=== PATIENT | female | born 1995 | race African-American/Black ===

== ENCOUNTER 2018-10-23 17:57 | Inpatient (IN) | payer BC, MEDICAID ==
[~2018-10-23] VITALS: Ht 167.6 cm; Wt 59.0 kg
[2018-10-23 18:00] VITALS: BP 135/87
--- NOTE | 2018-10-23 18:26 | NUR ---
Patient ambulated to bed 11. RN evaluating patient at bedside.
--- NOTE | 2018-10-23 18:29 | NUR ---
C/O BODYACHE 10/ X EARLIER THIS MORNING. DENIES N/V/D. TEMP 99.3. PMH: SICKLE CELL. CONNECTED TO MONITOR, MIKIE MARTIN MD FOR EVALUATION.
[2018-10-23] MEDS ORDERED: NACL 0.9% 1,000 ML IV ONE ×2 (19:15→19:20)
[2018-10-23] MEDS ORDERED: ONDANSETRON 4 MG/2 ML VIAL IVP ONE (19:20)
[2018-10-23] MEDS ORDERED: MORPHINE SULFATE 4 MG/ML SYR IVP ONE ×3 (19:20→21:35)
--- NOTE | 2018-10-23 19:20 | NUR ---
Pt report given to BALTA Jones. Transfer of care at this time.
--- NOTE | 2018-10-23 19:20 | NUR ---
ASSUMED CARE OF PT FROM BALTA NAVARRO
--- NOTE | 2018-10-23 20:04 | NUR ---
PATIENT RETURN FROM CT.
--- NOTE | 2018-10-23 20:15 | NUR ---
PT C/O PAIN. ER MD TRONCOSO AWARE.
[2018-10-23 20:31] LABS: APPEARANCE,URINE CLEAR (CLEAR); BILIRUBIN,URINE NEGATIVE (NEGATIVE); BLOOD, URINE 2+ (NEGATIVE); COLOR,URINE YELLOW (YELLOW); LEUKOCYTE ESTERASE ,URINE NEGATIVE (NEGATIVE); NITRITE, URINE NEGATIVE (NEGATIVE); UGLUCOSE NEGATIVE (NEGATIVE)
[2018-10-23 20:32] LABS: HEMATOCRIT 27.8 % (36-48); HEMOGLOBIN 9.5 g/dL (12.0-16.0); MEAN CORPUSCULAR HEMOGLOBIN 33 pg (27-31); MEAN CORPUSCULAR HGB CONC 34 g/dL (33-37); MEAN CORPUSCULAR VOLUME 95.1 fL (80-94); PLATELET COUNT (AUTO) 440 K/uL (140-450); RED BLOOD CELL COUNT(AUTO) 2.92 MIL/uL (4.20-5.40); RED CELL DISTRIBUTION WIDTH 17.6 % (11.6-13.7); WHITE BLOOD COUNT (AUTO) 20.6 K/uL (4.8-10.8)
[2018-10-23] MEDS ORDERED: IBUP-1842 PO (20:33)
[2018-10-23] MEDS ORDERED: VITD400 PO (20:33)
[2018-10-23] MEDS ORDERED: FOLI0.8T PO (20:33)
[2018-10-23] MEDS ORDERED: ACET-9529 PO (20:33)
[2018-10-23 20:40] LABS: WBC,URINE 0-5 /HPF (0-5)
[2018-10-23 20:45] LABS: ALBUMIN 4.3 g/dL (3.4-5.0); ANION GAP 13.1 (8-16); CARBON DIOXIDE 25.4 mmol/L (21-32); CREATININE 0.6 mg/dL (0.6-1.3); POTASSIUM 3.5 mmol/L (3.5-5.1)
[2018-10-23 20:51] LABS: CORRECTED WHITE BLOOD COUNT 19.3 K/uL (4.5-11.0)
[2018-10-23 20:52] LABS: LYMPHOCYTES % (MANUAL) 4 % (20-46); MONOCYTES % (MANUAL) 16 % (5-12)
[2018-10-23] MEDS ORDERED: KETOROLAC 30 MG/ML VIAL IVP ONE (21:35)
[2018-10-23] MEDS ORDERED: ZOLPIDEM 5 MG TAB PO PRN (21:50)
[2018-10-23] MEDS ORDERED: ONDANSETRON 4 MG/2 ML VIAL IVP PRN (21:50)
[2018-10-23] MEDS ORDERED: HYDROcodone/APAP 7.5/325 MG 1 TAB PO PRN (21:50)
[2018-10-23] MEDS ORDERED: ACETAMINOPHEN 325 MG TAB PO PRN (21:50)
[2018-10-23 22:29] LABS: PROTHROMBIN TIME 10.5 secs (10.8-13.4)
--- NOTE | 2018-10-23 22:30 | NUR ---
Patient will be admitted to care of DR CAIN. Admited to MED SURG. Will go to room 121-A. Belongings list completed. Report to BALTA GOLDBERG.
[2018-10-23 22:40] VITALS: BP 120/70
[2018-10-23] MEDS: NACL 0.9% 1,000 ML IV SCH (22:40)
--- NOTE | 2018-10-23 22:40 | NUR ---
RECEIVED BEDSIDE REPORT FROM STAIN MAKER WALLY, PATIENT AMBULATED TO BED FROM WHEELCHAIR, VITAL SIGNS ARE STABLE, PATIENT AWAKE AND ALERT, ASSISTED PATIENT TO BED, ORIENTED TO ROOM AND UNIT, BED LOW, CALL LIGHT IN REACH, FAMILY IS AT BEDSIDE. NO SIGNS OF DISTRESS ON RA, WILL CONTINUE TO MONITOR PATIENT.
[2018-10-23 22:44] LABS: FREE T4 (FREE THYROXINE) 0.95 ng/dL (0.76-1.46); MAGNESIUM 1.7 mg/dL (1.8-2.4); PHOSPHORUS 3.4 mg/dL (2.5-4.9); THYROID STIMULATING HORMONE 3.19 uIU/mL (0.34-3.74)
--- NOTE | 2018-10-23 23:03 | NUR ---
PATIENT HAS A MAGNESIUM OF 1.7, DR. ALBRECHT, RESIDENT AWARE. WILL PLACE ORDER FOR MAGNESIUM.
[2018-10-23] MEDS ORDERED: MAG SULF 2000 MG/WATER PREMIX 50 ML IV ONE (23:30)
[2018-10-24 00:04] LABS: BARBITURATE, URINE NEG. ng/ml (NEG <=200); BENZODIAZEPINE, URINE NEG. ng/mL (NEG <=200); CANNABINOID, URINE POS. ng/mL (NEG <=50); COCAINE, URINE NEG. ng/mL (NEG <=300); OPIATE, URINE POS. ng/mL (NEG <=2000); PHENCYCLIDINE SCREEN,URINE NEG. ng/mL (NEG <=25)
--- NOTE | 2018-10-24 01:15 | NUR ---
PATIENT SLEEPING COMFORTABLY IN BED, NO SIGNS OF DISTRESS ON RA, BED LOW, CALL LIGHT IN REACH, WILL CONTINUE TO MONITOR.
[2018-10-24] MEDS: MORPHINE SULFATE 2 MG/ML SYR IVP PRN ×6 (01:27→21:59)
--- NOTE | 2018-10-24 01:30 | NUR ---
PATIENT REPORTING PAIN OF 7/10, MEDICATED WITH PRN PAIN MEDICATION. WILL CONTINUE TO MONITOR
--- NOTE | 2018-10-24 02:27 | NUR ---
PATIENT STATES THAT PAIN IS REDUCED AND IS TOLERABLE, LYING IN BED WITH NO SIGNS OF DISTRESS ON RA. WILL CONTINUE TO MONITOR.
[2018-10-24] MEDS: NACL 0.9% 1,000 ML IV SCH ×3 (03:53→17:57)
--- NOTE | 2018-10-24 04:09 | NUR ---
CALLED DR. ALBRECHT, RESIDENT, AND MADE AWARE OF ELEVATED WBCS AND CT ABD RESULTS. NO NEW ORDERS AT THIS TIME.
[2018-10-24] MEDS ORDERED: FOLI0.8T PO (05:58)
--- NOTE | 2018-10-24 06:03 | NUR ---
PATIENT HAS PAIN 7/, ADMINISTERED PRN MEDICATION, PATIENT STATED THAT HEAT HELPS ALLEVIATE JOINT PAIN WELL AND REQUESTED A HEAT PACK. SPOKE TO DR. ALBRECHT AND HE WILL PLACE ORDER FOR HEATING PAD.
[2018-10-24] MEDS ORDERED: PIPERACILLIN/TAZOBACTAM 3.375 GM VIAL IV ONE (06:36)
[2018-10-24] MEDS: IBUPROFEN 400 MG TAB PO PRN ×2 (06:55→14:02)
[2018-10-24] MEDS ORDERED: PIPER/TAZO 3.375GM/D5W PREMIX 50 ML IV SCH (07:00)
[2018-10-24 07:05] LABS: BASOPHILS # (AUTO) 0.1 K/uL (0.00-0.22); BASOPHILS % (AUTO) 0.6 % (0.0-2.0); EOSINOPHILS # (AUTO) 0.1 K/uL (0-0.4); EOSINOPHILS % (AUTO) 0.7 % (0.0-4.0); HEMATOCRIT 25.3 % (36-48); HEMOGLOBIN 8.9 g/dL (12.0-16.0); LYMPHOCYTES # (AUTO) 1.8 K/uL (2.5-16.5); LYMPHOCYTES % (AUTO) 9.8 % (20.5-51.1); MEAN CORPUSCULAR HEMOGLOBIN 33 pg (27-31); MEAN CORPUSCULAR HGB CONC 35 g/dL (33-37); MONOCYTES # (AUTO) 3.3 K/uL (0.8-1.0); MONOCYTES % (AUTO) 18.5 % (1.7-9.3); NEUTROPHILS # (AUTO) 12.6 K/uL (1.8-7.7); NEUTROPHILS % (AUTO) 70.4 % (42.2-75.2); PLATELET COUNT (AUTO) 395 K/uL (140-450); RED BLOOD CELL COUNT(AUTO) 2.66 MIL/uL (4.20-5.40); RED CELL DISTRIBUTION WIDTH 16.5 % (11.6-13.7); WHITE BLOOD COUNT (AUTO) 17.9 K/uL (4.8-10.8)
[2018-10-24 07:16] LABS: ANION GAP 14.2 (8-16); CARBON DIOXIDE 23.7 mmol/L (21-32); CREATININE 0.6 mg/dL (0.6-1.3); POTASSIUM 3.9 mmol/L (3.5-5.1)
[2018-10-24 07:21] LABS: CHOL/HDL RATIO 2.1 (1-4.5); PHOSPHORUS 2.6 mg/dL (2.5-4.9)
--- NOTE | 2018-10-24 07:25 | NUR ---
RECEIVED PT REPORT FROM LEGAL RECORDS CLERK NURSE AT BEDSIDE. PT IS AWAKE IN BED WATCHING TV AND ON HER PHONE. PT IS ON ROOM AIR, SKIN INTACT. 24 G IV SITE NOTED ON THE R HAND, INFUSING NS 100 ML/HR. PT IS ON REGULAR DIET. CALL LIGHT IS WITHIN REACH. WILL CONTINUE TO MONITOR.
--- NOTE | 2018-10-24 07:28 | NUR ---
ENDORSED PT IN STABLE CONDITION TO AM NURSE.
[2018-10-24 08:00] VITALS: BP 109/61
[2018-10-24] MEDS: VITAMIN D 400 IU TAB PO SCH (08:39)
[2018-10-24] MEDS: DOCUSATE SODIUM 100 MG GELCAP PO SCH ×2 (08:39→19:55)
[2018-10-24] MEDS: FOLIC ACID 1 MG TAB PO SCH (08:39)
--- NOTE | 2018-10-24 08:39 | NUR ---
PATIENT HAS BEEN SCREENED AND CATEGORIZED MODERATE NUTRITION RISK. PATIENT WILL BE SEEN WITHIN 3-5 DAYS OF ADMISSION. 10/26/18[address]
[2018-10-24] MEDS ORDERED: FOLIC ACID 1 MG TAB PO SCH (09:00)
--- NOTE | 2018-10-24 09:00 | NUR ---
AM MEDS ADMINISTERED, PT TOLERATED WELL. PT C/O 01/18 GENERALIZED PAIN R/T SICKLE CELL CRISIS, PRN IV MORPHINE ADMINISTERED. WILL REASSESS PAIN IN AN HOUR.
[2018-10-24] MEDS: PIPER/TAZO 3.375GM/D5W PREMIX 50 ML IV SCH ×2 (12:25→19:55)
--- NOTE | 2018-10-24 12:30 | NUR ---
IV ZOSYN INFUSING AT THIS TIME. IV IS PATENT AND INTACT.
--- NOTE | 2018-10-24 12:49 | NUR ---
PT DID NOT EAT LUNCH TRAY, INSTEAD ASKED FOR A HAM SANDWICH.
--- NOTE | 2018-10-24 13:00 | NUR ---
PT PLACED BY RT ON 7 L O2 OXYMIZER.
--- NOTE | 2018-10-24 15:22 | NUR ---
PT'S RELATIVE VISITING AT BEDSIDE AT THIS TIME.
[2018-10-24 16:00] VITALS: BP 121/62
--- NOTE | 2018-10-24 17:00 | NUR ---
ASSUMED CARE FROM JENNIFER. PT AAOX4, NO SOB NOTED. NO COMPLAINTS MADE. TALKING TO FAMILY AT THE BEDSIDE.
--- NOTE | 2018-10-24 17:00 | NUR ---
PT CARE ENDORSED TO BALTA STEWART
--- NOTE | 2018-10-24 18:10 | NUR ---
PT EATING DINNER. NO SOB NOTED. NO C/O PAIN AT THIS TIME.
--- NOTE | 2018-10-24 19:17 | NUR ---
PT AWAKE, ON THE PHONE. NO SOB NOTED. NO C/O PAIN AT THIS TIME. ENDORSED TO NEXT SHIFT NURSE FOR CONTINUITY OF CARE.
--- NOTE | 2018-10-24 19:18 | NUR ---
RECEIVED REPORT FROM DAY SHIFT NURSE PAT-RN AT BEDSIDE. PT RESTING IN BED WITH FAMILY AT BEDSIDE. AOX4, ON ROOM AIR WITH RIGHT HAND #24 RUNNING NS @100ML/HR. DISCUSSED PLAN OF CARE AND PT VERBALIZED UNDERSTANDING. NO S/S OF RESPIRATORY DISTRESS OR DISCOMFORT NOTED AT THIS TIME. BED IN LOWEST POSITION, BED BREAKS ON, BOTH SIDE RAILS UP. BEDSIDE TABLE AND CALL LIGHT ARE WITHIN REACH. WILL CONTINUE TO MONITOR.
[2018-10-24 20:00] VITALS: BP 128/82
--- NOTE | 2018-10-24 20:00 | NUR ---
VITAL SIGNS TAKEN AND TOLERATED WELL. PT C/O PAIN 12/19 AND MEDICATED WITH NORCO. PT TOLERATED WELL. NO S/S OF RESPIRATORY DISTRESS OR DISCOMFORT NOTED AT THIS TIME. WILL CONTINUE TO MONITOR.
--- NOTE | 2018-10-24 20:00 | NUR ---
SCHEDULED MEDICATION GIVEN AND TOLERATED WELL. NO S/S OF RESPIRATORY DISTRESS OR DISCOMFORT NOTED AT THIS TIME. WILL CONTINUE TO MONITOR.
--- NOTE | 2018-10-24 21:59 | NUR ---
PT C/O PAIN 7-02/18. MEDICATED WITH MORPHINE AND TOLERATED WELL. NO S/S OF RESPIRATORY DISTRESS OR DISCOMFORT NOTED AT THIS TIME. WILL CONTINUE TO MONITOR.
--- NOTE | 2018-10-24 22:50 | NUR ---
PT CONTINUES TO C/O PAIN STATING "THE MORPHINE DIDN'T DO ANYTHING FOR MY PAIN." CALLED DR. CH AND AWAITING ORDERS.
--- NOTE | 2018-10-24 22:55 | NUR ---
PT REFUSED TROPONIN BLOOD DRAW. DR. SHIRA CH IS AWARE. NO NEW ORDERS AT THIS TIME. WILL CONTINUE TO MONITOR.
--- NOTE | 2018-10-24 23:17 | NUR ---
DR. CH IN TO SEE PT REGARDING PAIN. AFTER ASSESSMENT WILL ORDER ANOTHER DOSE OF MORPHINE. PT AGREES. NO S/S OF RESPIRATORY DISTRESS OR DISCOMFORT NOTED AT THIS TIME. WILL CONTINUE TO MONITOR.
--- NOTE | 2018-10-24 23:27 | NUR ---
VITAL SIGNS TAKEN AND MORPHINE GIVEN AND TOLERATED WELL. NO S/S OF RESPIRATORY DISTRESS OR DISCOMFORT NOTED AT THIS TIME. WILL CONTINUE TO MONITOR.
[2018-10-24] MEDS ORDERED: MORPHINE SULFATE 2 MG/ML SYR IVP SCH (23:30)
[2018-10-25] VITALS: BP 147/80
[2018-10-25] MEDS: NACL 0.9% 1,000 ML IV SCH ×2 (01:04→11:04)
--- NOTE | 2018-10-25 02:00 | NUR ---
PT SLEEPING IN BED. NO S/S OF RESPIRATORY DISTRESS OR DISCOMFORT NOTED AT THIS TIME. WILL CONTINUE TO MONITOR.
[2018-10-25] MEDS: MORPHINE SULFATE 2 MG/ML SYR IVP PRN ×2 (02:58→05:44)
--- NOTE | 2018-10-25 02:58 | NUR ---
PT C/O PAIN 02/18 AND MEDICATED WITH MORPHINE. PT TOLERATED WELL. NO S/S OF RESPIRATORY DISTRESS OR DISCOMFORT NOTED AT THIS TIME. WILL CONTINUE TO MONITOR.
[2018-10-25] MEDS: PIPER/TAZO 3.375GM/D5W PREMIX 50 ML IV SCH ×2 (05:14→13:57)
--- NOTE | 2018-10-25 05:14 | NUR ---
SCHEDULED MEDICATION ZOSYN GIVEN AND TOLERATED WELL. NO S/S OF RESPIRATORY DISTRESS OR DISCOMFORT NOTED AT THIS TIME. WILL CONTINUE TO MONITOR.
--- NOTE | 2018-10-25 05:44 | NUR ---
PT C/O PAIN 02/18 AND TOLERATED WELL. NO S/S OF RESPIRATORY DISTRESS OR DISCOMFORT NOTED AT THIS TIME. WILL CONTINUE TO MONITOR.
--- NOTE | 2018-10-25 06:49 | NUR ---
PT C/O THAT PAIN ISN'T BEING MANAGED. SPOKE WITH DR. TIDWELL AND WILL BE PLACING NEW ORDERS.
--- NOTE | 2018-10-25 07:06 | NUR ---
DILAUDID GIVEN FOR PAIN- NEW ORDER. PT TOLERATED WELL. NO S/S OF RESPIRATORY DISTRESS OR DISCOMFORT NOTED AT THIS TIME. WILL CONTINUE TO MONITOR.
--- NOTE | 2018-10-25 07:24 | NUR ---
ENDORSED PT CARE TO DAY SHIFT NURSE KELLI-RN FOR CONTINUITY OF CARE.
--- NOTE | 2018-10-25 07:25 | NUR ---
RECEIVED BEDSIDE REPORT FROM CANDY ROLLING MACHINE OPERATOR NURSE. PATIENT IS AWAKE, ALERT AND ORIENTEDX4. NO SIGNS OF DISTRESS ON 6L OXYMIZER. PATIENT IS AMBULATORY. GAIT IS STEADY. SKIN IS INTACT. IV ON R HAND 24G INFUSING NS AT 100. CLEAN, DRY AND INTACT. PATIENT ABLE TO MAKE NEEDS KNOWN. CONTINENT. BED IN LOW POSITION. CALL LIGHT WITHIN REACH. WILL CONTINUE TO MONITOR THE PATIENT
--- NOTE | 2018-10-25 07:25 | NUR ---
RECEIVED BEDSIDE REPORT FROM LUNCHROOM MOTHER NURSE. PATIENT IS AWAKE, ALERT AND ORIENTEDX4. NO SIGNS OF DISTRESS ON RA. SKIN IS INTACT. TELE MONITOR IN PLACE. IV ON R FA 20G INFUSING NS AT 50. CLEAN, DRY AND INTACT. PATIENT IS AMBULATORY, GAIT IS STEADY. PATIENT IS CONTINENT. BED IN LOW POSITION. CALL LIGHT WITHIN REACH. WILL CONTINUE TO MONITOR THE PATIENT Addendum: 10/25/18 at 1343 by Mara Grajeda RN WRONG PATIENT
[2018-10-25 07:41] LABS: ANION GAP 13.6 (8-16); CARBON DIOXIDE 24.5 mmol/L (21-32); CREATININE 0.6 mg/dL (0.6-1.3); POTASSIUM 4.1 mmol/L (3.5-5.1)
[2018-10-25] MEDS ORDERED: HYDROmorphone 1 MG/ML AMP IVP PRN (07:50)
[2018-10-25 08:00] VITALS: BP 108/58
[2018-10-25 08:41] LABS: BASOPHILS # (AUTO) 0.2 K/uL (0.00-0.22); EOSINOPHILS # (AUTO) 0.6 K/uL (0-0.4); EOSINOPHILS % (AUTO) 3.7 % (0.0-4.0); HEMATOCRIT 26.4 % (36-48); HEMOGLOBIN 9.1 g/dL (12.0-16.0); LYMPHOCYTES # (AUTO) 2.8 K/uL (2.5-16.5); LYMPHOCYTES % (AUTO) 17.1 % (20.5-51.1); MEAN CORPUSCULAR HEMOGLOBIN 33 pg (27-31); MEAN CORPUSCULAR HGB CONC 34 g/dL (33-37); MEAN CORPUSCULAR VOLUME 95.6 fL (80-94); MONOCYTES # (AUTO) 2.5 K/uL (0.8-1.0); MONOCYTES % (AUTO) 15.4 % (1.7-9.3); NEUTROPHILS # (AUTO) 10.3 K/uL (1.8-7.7); NEUTROPHILS % (AUTO) 62.8 % (42.2-75.2); PLATELET COUNT (AUTO) 384 K/uL (140-450); RED BLOOD CELL COUNT(AUTO) 2.77 MIL/uL (4.20-5.40); RED CELL DISTRIBUTION WIDTH 15.8 % (11.6-13.7); WHITE BLOOD COUNT (AUTO) 16.3 K/uL (4.8-10.8)
--- NOTE | 2018-10-25 09:00 | NUR ---
PATIENT IS IN BED. NO SIGNS OF DISTRESS ON RA. WILL CONTINUE TO MONITOR THE PATIENT Addendum: 10/25/18 at 1343 by Mara Grajeda RN WRONG PATIENT
--- NOTE | 2018-10-25 09:00 | NUR ---
PATIENT SITTING IN BED. NO SIGNS OF DISTRESS ON 6L OXYMIZER. BED IN LOW POSITION. CALL LIGHT WITHIN REACH
[2018-10-25] MEDS ORDERED: BISACODYL 10 MG SUPP RC SCH (09:24)
[2018-10-25] MEDS: FOLIC ACID 1 MG TAB PO SCH (10:15)
[2018-10-25] MEDS: DOCUSATE SODIUM 100 MG GELCAP PO SCH (10:16)
[2018-10-25] MEDS: VITAMIN D 400 IU TAB PO SCH (10:21)
--- NOTE | 2018-10-25 10:27 | NUR ---
ADMINISTERED MEDS. PATIENT TOLERATED WELL. PATIENT EDUCATED ON SIDE EFFECTS. NO COMPLAINTS AT THIS TIME. BED IN LOWEST POSITION. CALL LIGHT WITHIN REACH.
[2018-10-25] MEDS ORDERED: MORPHINE SULFATE 4 MG/ML SYR IVP PRN (11:00)
[2018-10-25] MEDS ORDERED: AMOX500C25 PO (11:25)
[2018-10-25] MEDS ORDERED: LACT10CA1 PO (11:26)
--- NOTE | 2018-10-25 12:00 | NUR ---
PATIENT LAYING IN BED. NO SIGNS OF DISTRESS. WILL CONTINUE TO MONITOR
[2018-10-25] MEDS ORDERED: MICO1KIT VG (12:42)
--- NOTE | 2018-10-25 13:58 | NUR ---
ADMINISTERED PRN PAIN MED. PATIENT TOLERATED WELL. EDUCATED ON SIDE EFFECTS. NO SIGNS OF DISTRESS. WILL CONTINUE TO MONITOR.
--- NOTE | 2018-10-25 16:02 | NUR ---
PATIENT IS SLEEPING. NO SIGNS OF DISTRESS. WILL CONTINUE TO MONITOR
--- NOTE | 2018-10-25 17:26 | NUR ---
EDUCATED ON DISEASE PROCESS, ABN S/SX, WHEN TO GO TO THE ER, EDUCATED ON F/U W PCP. EDUCATED ON MEDS AND GAVE PRESCRIPTION. EDUCATED ON REFUSAL ON FLU VACCINE, PNA NOT A CANDIDATE. IV REMOVED, TIP INTACT. ID BANDS REMOVED. PATIENTS SISTER IS ALMOST HERE TO PICK HER UP
--- NOTE | 2018-10-25 18:25 | NUR ---
PATIENT LEFT IN STABLE CONDITION.
== END 2018-10-25 18:25 | disposition home or self-care (01) | DRG 662 ==
LOC: MED 17:57 → MTU 22:03
PROVIDERS: ADMIT General Practice; ATTEND General Practice
DX: D57.00 Hb-SS disease with crisis, unspecified (principal); R65.10 Systemic inflammatory response syndrome (SIRS) of non-infectious origin without acute organ dysfunction; I89.8 Other specified noninfective disorders of lymphatic vessels and lymph nodes; E83.42 Hypomagnesemia; D72.829 Elevated white blood cell count, unspecified; B37.3 Candidiasis of vulva and vagina; R91.1 Solitary pulmonary nodule; M43.17 Spondylolisthesis, lumbosacral region; E80.6 Other disorders of bilirubin metabolism; D63.8 Anemia in other chronic diseases classified elsewhere; Z88.2 Allergy status to sulfonamides; Z79.899 Other long term (current) drug therapy; Z90.49 Acquired absence of other specified parts of digestive tract; Z90.81 Acquired absence of spleen; Z83.2 Family history of diseases of the blood and blood-forming organs and certain disorders involving the immune mechanism; Z80.9 Family history of malignant neoplasm, unspecified; Z82.49 Family history of ischemic heart disease and other diseases of the circulatory system
CPT/HCPCS: 36415; 71045; 80048; 80053; 80305; 81001; 82150; 82247; 83036; 83605; 83690; 83735; 83880; 84100; 84439; 84443; 84484; 85025; 85045; 85610; 85730; 86886; 86900; 86901; 87040; 87081; 87804; 96361; 96374; 96375; 96376; 99285; J1170; J1644; J1885; J2270; J2405; J2543; J3475; J7030; J7060; Q0092

== ENCOUNTER 2019-04-05 07:34 | Inpatient (IN) | payer MEDICAID, BC ==
[~2019-04-05] VITALS: Ht 167.6 cm; Wt 60.3 kg
[~2019-04-05 07:34] MED LIST: ACET-9529 PO; AMOX500C25 PO; FOLI0.8T PO; IBUP-1842 PO; LACT10CA1 PO; MICO1KIT VG; VITD400 PO
[2019-04-05 07:39] VITALS: BP 128/79
[2019-04-05] MEDS ORDERED: KETOROLAC 30 MG/ML VIAL IVP ONE (07:55)
[2019-04-05] MEDS ORDERED: NACL 0.9% 1,000 ML IV ONE (07:55)
[2019-04-05 08:45] LABS: APPEARANCE,URINE CLEAR (CLEAR); BILIRUBIN,URINE NEGATIVE (NEGATIVE); BLOOD, URINE NEGATIVE (NEGATIVE); COLOR,URINE YELLOW (YELLOW); LEUKOCYTE ESTERASE ,URINE NEGATIVE (NEGATIVE); NITRITE, URINE NEGATIVE (NEGATIVE); UGLUCOSE NEGATIVE (NEGATIVE)
[2019-04-05 08:49] LABS: HEMATOCRIT 27.6 % (36-48); HEMOGLOBIN 9.7 g/dL (12.0-16.0); MEAN CORPUSCULAR HEMOGLOBIN 33 pg (27-31); MEAN CORPUSCULAR HGB CONC 35 g/dL (33-37); MEAN CORPUSCULAR VOLUME 94.4 fL (80-94); PLATELET COUNT (AUTO) 409 K/uL (140-450); RED BLOOD CELL COUNT(AUTO) 2.92 MIL/uL (4.20-5.40); RED CELL DISTRIBUTION WIDTH 16.6 % (11.6-13.7); WHITE BLOOD COUNT (AUTO) 13.3 K/uL (4.8-10.8)
[2019-04-05 08:53] LABS: ANION GAP 14.4 (8-16); CARBON DIOXIDE 24.5 mmol/L (21-32); CREATININE 0.6 mg/dL (0.6-1.3); POTASSIUM 3.9 mmol/L (3.5-5.1)
[2019-04-05 08:58] LABS: ALBUMIN 4.1 g/dL (3.4-5.0); TOTAL BILIRUBIN 3.1 mg/dL (0.0-1.0)
[2019-04-05] MEDS ORDERED: MORPHINE SULFATE 10 MG/ML VIAL IVP ONE ×2 (09:20→10:50)
[2019-04-05 09:29] LABS: EOSINOPHILS % (MANUAL) 9 % (0-4); LYMPHOCYTES % (MANUAL) 24 % (20-46); MONOCYTES % (MANUAL) 17 % (5-12)
[2019-04-05] MEDS ORDERED: LORazepam 2 MG/ML VIAL IM/IVP PRN (11:35)
[2019-04-05] MEDS ORDERED: DOCUSATE SODIUM 100 MG GELCAP PO PRN (11:35)
[2019-04-05] MEDS ORDERED: ONDANSETRON 4 MG/2 ML VIAL IM/IVP PRN (11:35)
[2019-04-05] MEDS ORDERED: HYDROcodone/APAP 5/325 MG 1 TAB TAB PO PRN (11:35)
[2019-04-05] MEDS ORDERED: ACETAMINOPHEN 325 MG TAB PO PRN (11:35)
[2019-04-05] MEDS ORDERED: ZOLPIDEM 5 MG TAB PO PRN (11:35)
[2019-04-05 12:00] LABS: BARBITURATE, URINE NEG. ng/ml (NEG <=200); BENZODIAZEPINE, URINE NEG. ng/mL (NEG <=200); CANNABINOID, URINE POS. ng/mL (NEG <=50); COCAINE, URINE NEG. ng/mL (NEG <=300); OPIATE, URINE POS. ng/mL (NEG <=2000); PHENCYCLIDINE SCREEN,URINE NEG. ng/mL (NEG <=25)
[2019-04-05 12:16] LABS: CHOL/HDL RATIO 3.2 (1-4.5); FREE T4 (FREE THYROXINE) 0.84 ng/dL (0.76-1.46); MAGNESIUM 1.8 mg/dL (1.8-2.4); PHOSPHORUS 4.8 mg/dL (2.5-4.9); THYROID STIMULATING HORMONE 3.58 uIU/mL (0.34-3.74)
[2019-04-05 12:33] LABS: PROTHROMBIN TIME 10.7 secs (10.8-13.4)
[2019-04-05 13:30] VITALS: BP 102/54
[2019-04-05] MEDS: NACL 0.9% 1,000 ML IV SCH ×2 (14:01→21:32)
[2019-04-05] MEDS: oxyCODONE/APAP 5/325 MG 1 TAB TAB PO PRN (17:42)
[2019-04-05] MEDS: MORPHINE SULFATE 2 MG/ML SYR IVP PRN (21:06)
[2019-04-06] VITALS: BP 97/56
[2019-04-06] MEDS: NACL 0.9% 1,000 ML IV SCH ×2 (03:07→12:50)
[2019-04-06] MEDS: MORPHINE SULFATE 2 MG/ML SYR IVP PRN ×3 (06:05→21:42)
[2019-04-06 07:39] LABS: BASOPHILS # (AUTO) 0.2 K/uL (0.00-0.22); BASOPHILS % (AUTO) 1.3 % (0.0-2.0); EOSINOPHILS % (AUTO) 6.9 % (0.0-4.0); HEMATOCRIT 27.2 % (36-48); HEMOGLOBIN 9.4 g/dL (12.0-16.0); LYMPHOCYTES # (AUTO) 2.5 K/uL (2.5-16.5); LYMPHOCYTES % (AUTO) 17.9 % (20.5-51.1); MEAN CORPUSCULAR HEMOGLOBIN 33 pg (27-31); MEAN CORPUSCULAR HGB CONC 35 g/dL (33-37); MONOCYTES # (AUTO) 2.7 K/uL (0.8-1.0); MONOCYTES % (AUTO) 19.3 % (1.7-9.3); NEUTROPHILS # (AUTO) 7.6 K/uL (1.8-7.7); NEUTROPHILS % (AUTO) 54.6 % (42.2-75.2); PLATELET COUNT (AUTO) 403 K/uL (140-450); RED BLOOD CELL COUNT(AUTO) 2.86 MIL/uL (4.20-5.40); RED CELL DISTRIBUTION WIDTH 15.9 % (11.6-13.7)
[2019-04-06 07:44] LABS: MAGNESIUM 1.8 mg/dL (1.8-2.4)
[2019-04-06 07:59] LABS: ANION GAP 13.9 (8-16); CARBON DIOXIDE 24.2 mmol/L (21-32); CREATININE 0.5 mg/dL (0.6-1.3); POTASSIUM 4.1 mmol/L (3.5-5.1)
[2019-04-06 08:00] VITALS: BP 94/54
[2019-04-06] MEDS: oxyCODONE/APAP 5/325 MG 1 TAB TAB PO PRN (15:13)
[2019-04-06 16:00] VITALS: BP 93/51
[2019-04-06 20:00] VITALS: BP 100/56
[2019-04-07] MEDS: NACL 0.9% 1,000 ML IV SCH (00:48)
[2019-04-07 04:00] VITALS: BP 105/58
[2019-04-07 08:05] LABS: BASOPHILS # (AUTO) 0.1 K/uL (0.00-0.22); BASOPHILS % (AUTO) 0.9 % (0.0-2.0); EOSINOPHILS # (AUTO) 0.8 K/uL (0-0.4); EOSINOPHILS % (AUTO) 8.5 % (0.0-4.0); HEMATOCRIT 27.5 % (36-48); HEMOGLOBIN 9.5 g/dL (12.0-16.0); LYMPHOCYTES % (AUTO) 30.8 % (20.5-51.1); MEAN CORPUSCULAR HEMOGLOBIN 33 pg (27-31); MEAN CORPUSCULAR HGB CONC 35 g/dL (33-37); MEAN CORPUSCULAR VOLUME 95.6 fL (80-94); MONOCYTES # (AUTO) 1.5 K/uL (0.8-1.0); NEUTROPHILS # (AUTO) 4.2 K/uL (1.8-7.7); NEUTROPHILS % (AUTO) 43.8 % (42.2-75.2); PLATELET COUNT (AUTO) 375 K/uL (140-450); RED BLOOD CELL COUNT(AUTO) 2.87 MIL/uL (4.20-5.40); RED CELL DISTRIBUTION WIDTH 15.8 % (11.6-13.7); WHITE BLOOD COUNT (AUTO) 9.7 K/uL (4.8-10.8)
[2019-04-07 10:12] LABS: CREATININE 0.5 mg/dL (0.6-1.3); POTASSIUM 4.5 mmol/L (3.5-5.1)
[2019-04-07 10:26] LABS: ANION GAP 15.5 (8-16)
[2019-04-07 11:06] LABS: MAGNESIUM 1.7 mg/dL (1.8-2.4); PHOSPHORUS 4.4 mg/dL (2.5-4.9)
== END 2019-04-07 11:45 | disposition home or self-care (01) | DRG 812 ==
LOC: MED 07:34 → MMU 11:36
PROVIDERS: ADMIT General Practice; ATTEND General Practice
DX: D57.00 Hb-SS disease with crisis, unspecified (principal); R65.10 Systemic inflammatory response syndrome (SIRS) of non-infectious origin without acute organ dysfunction; Z88.2 Allergy status to sulfonamides; Z79.899 Other long term (current) drug therapy; Z90.49 Acquired absence of other specified parts of digestive tract
CPT/HCPCS: 36415; 71045; 76705; 80048; 80053; 80305; 81003; 82150; 83036; 83690; 83735; 83880; 84100; 84439; 84443; 84484; 84703; 85025; 85045; 85610; 85730; 87081; 96361; 96374; 96375; 96376; 99285; J1885; J2270; J7030; Q0092

== ENCOUNTER 2019-04-13 09:02 | Emergency (ER) | payer MEDICAID, BC ==
[~2019-04-13] VITALS: Ht 167.6 cm; Wt 59.4 kg
[~2019-04-13 09:02] MED LIST changes: -AMOX500C25 PO; -MICO1KIT VG
[2019-04-13 09:16] VITALS: BP 101/79
--- NOTE | 2019-04-13 09:21 | NUR ---
PATIENT WAS HOSPITALIZED HERE ON 04/05/19 FOR SICKLE CELL CRISIS. WAS TOLD TO F/U WITH PCP BUT PT DOES NOT HAVE PCP SO DECIDED TO F/U HERE TODAY. DENIES ANY PROBLEMS SINCE DISCHARGE ON LAST ADMISSION. HX- SICKLE CELL DISEASE RX- FOLIC ACID, VIT D, NORCO 7.5
--- NOTE | 2019-04-13 09:22 | NUR ---
DR. GUILLERMO EVALUATING PATIENT AT BEDSIDE.
--- NOTE | 2019-04-13 09:52 | NUR ---
Patient discharged with v/s stable. Written and verbal after care instructions given and explained. Patient alert, oriented and verbalized understanding of instructions. Ambulatory with steady gait. All questions addressed prior to discharge. ID band removed. Patient advised to follow up with PMD. Rx of [place]flower, Vitamin D3 given. Patient educated on indication of medication including possible reaction and side effects. Opportunity to ask questions provided and answered.
[2019-04-13 09:53] VITALS: BP 101/79
== END 2019-04-13 09:52 | disposition home or self-care (01) ==
LOC: MED 09:02
DX: D57.1 Sickle-cell disease without crisis (principal); F12.90 Cannabis use, unspecified, uncomplicated; Z76.0 Encounter for issue of repeat prescription; Z88.2 Allergy status to sulfonamides; Z79.899 Other long term (current) drug therapy
CPT/HCPCS: 81025; 99283

== ENCOUNTER 2019-07-19 20:07 | Emergency (ER) | payer OTHER, MEDICAID ==
[~2019-07-19] VITALS: Ht 167.6 cm; Wt 57.2 kg
[2019-07-19 20:27] VITALS: BP 117/69
--- NOTE | 2019-07-19 20:35 | NUR ---
PT AMBULATED TO LOBBY WITH VSS.
--- NOTE | 2019-07-19 20:49 | NUR ---
AMBULATED TO ER BED 9
--- NOTE | 2019-07-19 21:00 | NUR ---
24 Y/O FEMALE C/O LOWER BACK AND COCCYX REGION AND LEFT SIDEX YESTERADY PT STATES SHE HAS HX OF SICKLE CELL. ABD IS SOFT, ROUND, NONTENDER, ACTIVE BS. VSS. NO DISTRESS NOTED. DENIES BURNING SENSATION WHEN PEEING OR BLOOD IN THE URINE. RATES PAIN 10/10 AND IS CONSTANT. A & O X4. STEADY GAIT. ALLERGIES: SULFA PMH: SICKLE CELL, MARI DN GALLBLADDER REMOVAL.
[2019-07-19 21:18] LABS: APPEARANCE,URINE CLEAR (CLEAR); BILIRUBIN,URINE NEGATIVE (NEGATIVE); BLOOD, URINE NEGATIVE (NEGATIVE); COLOR,URINE YELLOW (YELLOW); LEUKOCYTE ESTERASE ,URINE NEGATIVE (NEGATIVE); NITRITE, URINE NEGATIVE (NEGATIVE); UGLUCOSE NEGATIVE (NEGATIVE)
[2019-07-19] MEDS: MORPHINE SULFATE 4 MG/ML SYR IVP ONE (21:46)
[2019-07-19] MEDS: ONDANSETRON 4 MG/2 ML VIAL IVP ONE (21:47)
[2019-07-19 21:54] LABS: HEMATOCRIT 27.7 % (36-48); HEMOGLOBIN 9.6 g/dL (12.0-16.0); MEAN CORPUSCULAR HEMOGLOBIN 33 pg (27-31); MEAN CORPUSCULAR HGB CONC 35 g/dL (33-37); MEAN CORPUSCULAR VOLUME 95.2 fL (80-94); PLATELET COUNT (AUTO) 420 K/uL (140-450); RED BLOOD CELL COUNT(AUTO) 2.91 MIL/uL (4.20-5.40); RED CELL DISTRIBUTION WIDTH 15.8 % (11.6-13.7); WHITE BLOOD COUNT (AUTO) 11.8 K/uL (4.8-10.8)
[2019-07-19 22:14] LABS: ALBUMIN 4.7 g/dL (3.4-5.0); ANION GAP 12.6 (8-16); CARBON DIOXIDE 26.5 mmol/L (21-32); CREATININE 0.6 mg/dL (0.6-1.3); POTASSIUM 4.1 mmol/L (3.5-5.1); TOTAL BILIRUBIN 3.6 mg/dL (0.0-1.0)
[2019-07-19 22:32] LABS: EOSINOPHILS % (MANUAL) 3 % (0-4); LYMPHOCYTES % (MANUAL) 38 % (20-46); METAMYELOCYTES % 1 % (0-0); MONOCYTES % (MANUAL) 11 % (5-12)
[2019-07-19] MEDS: NACL 0.9% 1,000 ML IV ONE (23:15)
[2019-07-19] MEDS: fentaNYL 0.05 MG/ML VIAL IVP ONE (23:17)
--- NOTE | 2019-07-20 00:54 | NUR ---
Patient discharged with v/s stable. Written and verbal after care instructions given and explained. Patient verbalized understanding. Ambulatory with steady gait. All questions addressed prior to discharge. Advised to follow up with PMD.
[2019-07-20 00:55] VITALS: BP 108/74
--- NOTE | 2019-07-20 08:51 | NUR ---
Late entry. Confirmed with RN that 0.9 NS IV completed at 1689
== END 2019-07-20 00:54 | disposition home or self-care (01) ==
LOC: MED 20:07
DX: D57.1 Sickle-cell disease without crisis (principal); M54.5 Low back pain; Z79.899 Other long term (current) drug therapy; Z88.2 Allergy status to sulfonamides
CPT/HCPCS: 36415; 80053; 81003; 81025; 85025; 85045; 96374; 96375; 99283; J2270; J2405; J3010; J7030

== ENCOUNTER 2020-03-01 11:39 | Emergency (ER) | payer MEDICAID, OTHER ==
[~2020-03-01] VITALS: Ht 167.6 cm; Wt 61.2 kg
[2020-03-01 11:42] VITALS: BP 120/70
--- NOTE | 2020-03-01 11:53 | NUR ---
25 Y/O FEMALE PRESENTS TO ER WITH C/O HEADACHE X 4 DAYS. 8/10 PAIN. DENIES VISION CHANGES,SENSITIVITY TO LIGHT, SOUND, OR SMELL, TASTE, NAUSEA, VOMITING, DIARRHEA, SOB, COUGH, FEVER, CHILLS, TRAUMA, LOC. VSS, R/R EQUAL, AND UNLABORED. DENIES TAKING ANY MEDS PRIOR TO ARRIVAL TO ER. SIDE RAIL X 1, BED IN LOW POSITION, WILL CONTINUE TO MONITOR. ALLERGY: SULFA PMH: SICKLE CELL ANEMIA
--- NOTE | 2020-03-01 11:57 | NUR ---
Dr. Watts is evaluating the patient at bedside.
[2020-03-01] MEDS ORDERED: METOCLOPRAMIDE 10 MG/2 ML INJ VIAL IVP ONE (12:05)
[2020-03-01] MEDS ORDERED: NACL 0.9% 1,000 ML IV ONE ×2 (12:05→13:35)
[2020-03-01] MEDS ORDERED: diphenhydrAMINE 50 MG/ML VIAL IVP ONE (12:05)
--- NOTE | 2020-03-01 14:04 | NUR ---
PT RESTING QUIETLY IN BED, PLAYING WITH PHONE. "I FEEL SO MUCH BETTER." ANOTHER 1L BOLUS STARTED. VSS, R/R EQUAL, AND UNLABORED, SIDE RAIL X1, BED IN LOW POSITION, WILL CONTINUE TO MONITOR.
[2020-03-01 14:56] VITALS: BP 120/70
--- NOTE | 2020-03-01 14:57 | NUR ---
Patient discharged with v/s stable. Written and verbal after care instructions given and explained. Patient alert, oriented and verbalized understanding of instructions. Ambulatory with steady gait. All questions addressed prior to discharge. ID band removed. Patient advised to follow up with PMD. Rx of FLORICET given. Patient educated on indication of medication including possible reaction and side effects. Opportunity to ask questions provided and answered.
== END 2020-03-01 14:57 | disposition home or self-care (01) ==
LOC: MED 11:39
DX: R51 Headache (principal); D57.80 Other sickle-cell disorders without crisis; Z88.2 Allergy status to sulfonamides; Z79.899 Other long term (current) drug therapy
CPT/HCPCS: 96361; 96374; 96375; 99284; J1200; J2765; J7030

== ENCOUNTER 2020-08-13 18:47 | Emergency (ER) | payer OTHER ==
[~2020-08-13] VITALS: Ht 167.6 cm; Wt 60.8 kg
[2020-08-13 18:51] VITALS: BP 127/77
--- NOTE | 2020-08-13 20:49 | NUR ---
25 YR OLD FEMALE FOUND IN SEMI-FOWLERS POSITION IN BED. PT IS AOX4. PT CC OF TOTAL BODY PAIN. PT STATES 8/10 TOTAL BODY PAIN THAT STARTED LAST WEDNESDAY. PT STATES TAKING 2 TYLENOL PPILLS 2 HRS AGO AND STATES TAKING NORCO 10MG LAST NIGHT. PT DENIES OTHER MEDICAL COMPLAINTS. BED LOCKED IN LOWEST POSITION WITH 1 SIDE RAIL UP. WILL CONTINUE TO MONITOR. HISTORY- SICKLE CELL & PT STATES HAVING A HEART MURMUR LONG TIME AGO BUT DOESNT RECALL WHEN ALLERGIES- SULFA, MORPHINE
--- NOTE | 2020-08-13 21:28 | NUR ---
EMT AT BEDSIDE FOR EKG.
--- NOTE | 2020-08-13 21:32 | NUR ---
FORENSIC COMPUTER EXAMINER AT BEDSIDE.
[2020-08-13] MEDS: NACL 0.9% 1,000 ML IV SCH ×2 (21:50→23:32)
[2020-08-13 21:54] LABS: HEMATOCRIT 26.3 % (36-48); HEMOGLOBIN 9.3 g/dL (12.0-16.0); MEAN CORPUSCULAR HEMOGLOBIN 33 pg (27-31); MEAN CORPUSCULAR HGB CONC 35 g/dL (33-37); MEAN CORPUSCULAR VOLUME 93.2 fL (80-94); PLATELET COUNT (AUTO) 376 K/uL (140-450); RED BLOOD CELL COUNT(AUTO) 2.82 MIL/uL (4.20-5.40); RED CELL DISTRIBUTION WIDTH 16.8 % (11.6-13.7); WHITE BLOOD COUNT (AUTO) 13.5 K/uL (4.8-10.8)
[2020-08-13 22:12] LABS: ALBUMIN 4.5 g/dL (3.4-5.0); ANION GAP 14.4 (8-16); CARBON DIOXIDE 25.6 mmol/L (21-32); CREATININE 0.5 mg/dL (0.6-1.3); TOTAL BILIRUBIN 3.5 mg/dL (0.0-1.0)
[2020-08-13 22:21] LABS: EOSINOPHILS % (MANUAL) 5 % (0-4); LYMPHOCYTES % (MANUAL) 41 % (20-46); MONOCYTES % (MANUAL) 13 % (5-12)
[2020-08-13] MEDS ORDERED: HYDROmorphone PFS 2 MG/ML SYR ONE (22:23)
[2020-08-13] MEDS: HYDROmorphone PFS 2 MG/ML SYR IVP ONE (22:26)
--- NOTE | 2020-08-13 23:28 | NUR ---
PT FOUND LYING ON LEFT SIDE IN BED. PT STATES 8/10 ABDOMINAL PAIN. ABD IS SOFT AND NON-TENDER. PT DENIES OTHER MEDICAL COMPLAINTS. BED LOCKED IN LOWEST POSITION WITH 1 SIDE RAIL UP. WILL CONTINUE TO MONITOR.
[2020-08-14] MEDS: HYDROmorphone PFS 2 MG/ML SYR IVP ONE (00:22)
--- NOTE | 2020-08-14 00:25 | NUR ---
PT'S NS IVF STILL INFUSING , PER PT SHE WOULD LIKE TO FINISH IVF BEFORE DISCHARGE.
[2020-08-14 01:07] VITALS: BP 99/55
--- NOTE | 2020-08-14 01:07 | NUR ---
IV removed, catheter intact and site benign. Applied folded 4x4 gauze and tape to stop bleeding.
== END 2020-08-14 01:07 | disposition home or self-care (01) ==
LOC: MED 18:47
DX: D57.819 Other sickle-cell disorders with crisis, unspecified (principal); Z88.2 Allergy status to sulfonamides; Z88.5 Allergy status to narcotic agent; Z79.899 Other long term (current) drug therapy
CPT/HCPCS: 36415; 71045; 80053; 83880; 84484; 85025; 85045; 86886; 86900; 86901; 93005; 96361; 96374; 96376; 99285; J1170; J7030

== ENCOUNTER 2020-11-17 23:45 | Emergency (ER) | payer OTHER ==
[~2020-11-17] VITALS: Ht 167.6 cm; Wt 59.0 kg
[~2020-11-17 23:45] MED LIST changes: -FOLI0.8T PO; +FOLI0.8T9 PO
[2020-11-17 23:49] VITALS: BP 128/69
--- NOTE | 2020-11-17 23:49 | NUR ---
TO BED AMBULATORY
--- NOTE | 2020-11-18 00:01 | NUR ---
25 Y/O FEMALE CAME TO THE ED C/O VAGINAL PAIN. PT STATES 5/10 PAIN AND DESCRIBES PAIN DSICOMFORT. DENIES N/V/D; SKIN IS PINK/WARM/DRY; AAOX4 WITH EVEN AND STEADY GAIT; LUNGS CLEAR BL; HR EVEN AND REGULAR; PT DENIES ANY FEVER, CP, SOB, OR COUGH AT THIS TIME; VSS; PATIENT POSITIONED FOR COMFORT; HOB ELEVATED; BEDRAILS UP X2; BED DOWN. ER MD MADE AWARE OF PT STATUS. ALLERGIES: SULFA PMH: SICKLE CELL DISEASE, GALLBLADDER AND SPLEEN REMOVAL
--- NOTE | 2020-11-18 00:44 | NUR ---
Patient being evaluated by physician at bedside.
[2020-11-18] MEDS ORDERED: FLUCONAZOLE 100 MG TAB PO ONE (00:50)
[2020-11-18] MEDS ORDERED: FLUC150T PO (00:50)
[2020-11-18] MEDS ORDERED: CEPH-588 PO (00:52)
[2020-11-18] MEDS ORDERED: CRUSHER, PILL MC ONE (01:08)
[2020-11-18 01:15] VITALS: BP 128/69
--- NOTE | 2020-11-18 01:16 | NUR ---
Patient discharged with v/s stable. Written and verbal after care instructions given and explained. Patient alert, oriented and verbalized understanding of instructions. Ambulatory with steady gait. All questions addressed prior to discharge. ID band removed. Patient advised to follow up with PMD. Rx of DIFLUCAN AND KEFLEX given. Patient educated on indication of medication including possible reaction and side effects. Opportunity to ask questions provided and answered.
== END 2020-11-18 01:16 | disposition home or self-care (01) ==
LOC: MED 23:45
DX: B37.3 Candidiasis of vulva and vagina (principal); N39.0 Urinary tract infection, site not specified; Z88.2 Allergy status to sulfonamides; Z88.5 Allergy status to narcotic agent; Z79.899 Other long term (current) drug therapy
CPT/HCPCS: 81002; 81025; 99283

== ENCOUNTER 2020-11-21 14:51 | Emergency (ER) | payer OTHER ==
[~2020-11-21] VITALS: Ht 167.6 cm; Wt 59.0 kg
[~2020-11-21 14:51] MED LIST changes: +CEPH-588 PO; +FLUC150T PO
[2020-11-21 14:53] VITALS: BP 109/69
--- NOTE | 2020-11-21 14:59 | NUR ---
Patient ambulated to bed 12 with steady/even gait.
--- NOTE | 2020-11-21 15:05 | NUR ---
Urine sample collected.
--- NOTE | 2020-11-21 15:05 | NUR ---
25 y/o F brought in from home with c/c lower abdominal pain, N/V, headache, and low back pain. Patient states N/V x 1 hour. Reports lower abdominal pain to suprapubic region, 5/10, aching/intermittent, non-radiating. Patient states she was seen at ER a few days ago and was discharged with ABX Keflex and yeast infection medication. Patient also reports low back pain, 5/10. Pt also states headache to right temporal region. States Tylenol Extra Strength with positive relief. Pt dneies any other complaints, states abdominal pain is main concern for todays visit. Denies SOB, CP, dizziness, Pt placed into gown and surveillance system monitor. Bed locked in lowest position, side rails x 1, call light in reach. PMH: Sickle cell diease Meds: Folic acid, [place] Allergies: Sulfa, morphine Sx: appendectomy, spleenectomy, cholecystectomy
--- NOTE | 2020-11-21 15:06 | NUR ---
Dr. Watts is evaluating patient at bedside.
[2020-11-21] MEDS ORDERED: NACL 0.9% 1,000 ML IV ONE (15:10)
--- NOTE | 2020-11-21 15:25 | NUR ---
Lab at bedside
[2020-11-21 15:42] LABS: HEMOGLOBIN 9.3 g/dL (12.0-16.0); MEAN CORPUSCULAR HEMOGLOBIN 33 pg (27-31); MEAN CORPUSCULAR HGB CONC 34 g/dL (33-37); MEAN CORPUSCULAR VOLUME 94.8 fL (80-94); PLATELET COUNT (AUTO) 441 K/uL (140-450); RED BLOOD CELL COUNT(AUTO) 2.84 MIL/uL (4.20-5.40); RED CELL DISTRIBUTION WIDTH 15.2 % (11.6-13.7); WHITE BLOOD COUNT (AUTO) 16.2 K/uL (4.8-10.8)
--- NOTE | 2020-11-21 15:42 | NUR ---
US at bedside
--- NOTE | 2020-11-21 15:45 | NUR ---
US tech at bedside accompanied by female buyer liaison.
[2020-11-21 15:54] LABS: ALBUMIN 4.3 g/dL (3.4-5.0); ANION GAP 14.3 (8-16); CARBON DIOXIDE 24.2 mmol/L (21-32); CREATININE 0.5 mg/dL (0.6-1.3); POTASSIUM 4.5 mmol/L (3.5-5.1); TOTAL BILIRUBIN 2.8 mg/dL (0.0-1.0)
[2020-11-21 16:06] LABS: EOSINOPHILS % (MANUAL) 1 % (0-4); LYMPHOCYTES % (MANUAL) 10 % (20-46); MONOCYTES % (MANUAL) 7 % (5-12); PROMYELOCYTES % 1 % (0-0)
--- NOTE | 2020-11-21 16:10 | NUR ---
Patient presents asleep in left lying position. 2 blankets provided per pt request. Respirations even/unlabored. All pt needs met at this time. Bed locked in lowest position, side rails x 1, call light in reach.
--- NOTE | 2020-11-21 16:56 | NUR ---
Patient reports pain 0/10; denies any nausea at this time. Lights dimmed. All pt needs met at this time. Bed locked in lowest position, side rails x 1, call light in reach.
[2020-11-21 17:15] LABS: APPEARANCE,URINE CLEAR (CLEAR); BILIRUBIN,URINE NEGATIVE (NEGATIVE); BLOOD, URINE 3+ (NEGATIVE); COLOR,URINE YELLOW (YELLOW); LEUKOCYTE ESTERASE ,URINE NEGATIVE (NEGATIVE); NITRITE, URINE NEGATIVE (NEGATIVE); UGLUCOSE NEGATIVE (NEGATIVE)
[2020-11-21 17:22] LABS: RBC,URINE 11-20 (MOD) /HPF (0-5); WBC,URINE 0-5 /HPF (0-5)
[2020-11-21 17:37] VITALS: BP 114/72
== END 2020-11-21 17:37 | disposition home or self-care (01) ==
LOC: MED 14:51
DX: N94.6 Dysmenorrhea, unspecified (principal); Z88.2 Allergy status to sulfonamides; Z88.5 Allergy status to narcotic agent
CPT/HCPCS: 36415; 76830; 76856; 80053; 81001; 81025; 83690; 85025; 93976; 96360; 99285; J7030